=== PATIENT | male | born 1945 | race Caucasian/White ===

== ENCOUNTER 2018-08-24 12:26 | Observation (INO) | payer BC, MEDICARE ==
[2018-08-24] MEDS ORDERED: NACL 0.9% 3 ML SYG IV (14:00)
[2018-08-24] MEDS ORDERED: traMADol 50 MG TAB GTB (14:00)
[2018-08-24] MEDS ORDERED: ONDANSETRON 4 MG INJ IV (14:00)
[2018-08-24] MEDS: SOD CHLORIDE 0.9% 1,000 ML IV ×2 (14:18→23:01)
[2018-08-24] MEDS: LORATADINE 10 MG TAB PO (14:24)
[2018-08-24] MEDS: PANTOPRAZOLE 40 MG INJ IV (14:24)
[2018-08-24 15:36] LABS: TROPONIN-I < 0.012 ng/ml (0.000-0.120)
[2018-08-24 20:10] LABS: TROPONIN-I < 0.012 ng/ml (0.000-0.120)
[2018-08-24] MEDS: ACETAMINOPHEN 325 MG TAB PO (23:01)
[2018-08-25] MEDS: PANTOPRAZOLE 40 MG INJ IV (05:33)
[2018-08-25 06:06] LABS: ADD MAN DIFF? NO
[2018-08-25 06:11] LABS: WHITE BLOOD COUNT 3.4 10^3/ul (4.8-10.8)
[2018-08-25 06:11] LABS: ABNORMAL IP MESSAGE 1; BASOPHILS % 0.3 % (0.0-2.0); EOSINOPHILS % 0.3 % (0.0-7.0); HEMATOCRIT 35.3 % (42.0-52.0); HEMOGLOBIN 11.6 g/dl (14.0-18.0); LYMPHOCYTES # 0.5 10^3/ul (0.8-2.9); LYMPHOCYTES % 13.7 % (15.0-51.0); MEAN CORPUSCULAR HEMOGLOBIN 30.4 pg (29.0-33.0); MEAN CORPUSCULAR HGB CONC 32.9 g/dl (32.0-37.0); MEAN CORPUSCULAR VOLUME 92.4 fl (82.0-101.0); MEAN PLATELET VOLUME 9.9 fl (7.4-10.4); MONOCYTE # 0.4 10^3/ul (0.3-0.9); MONOCYTES % 12.2 % (0.0-11.0); NEUTROPHIL # 2.5 10^3/ul (1.6-7.5); NEUTROPHILS % 72.9 % (39.0-77.0); PLATELET COUNT 146 10^3/UL (140-415); POSITIVE DIFF @See below; RED BLOOD COUNT 3.82 10^6/ul (4.70-6.10); RED CELL DISTRIBUTION WIDTH 13.4 % (11.5-14.5)
[2018-08-25 07:27] LABS: ANION GAP 8 (5-13); BLOOD UREA NITROGEN 15 mg/dl (7-20); CALCIUM 8.3 mg/dl (8.4-10.2); CARBON DIOXIDE 28 mmol/L (21-31); CHLORIDE 100 mmol/L (97-110); CREATININE 0.94 mg/dl (0.61-1.24); GLUCOSE 88 mg/dl (70-220); POTASSIUM 3.3 mmol/L (3.5-5.1); SODIUM 136 mmol/L (135-144)
[2018-08-25] MEDS: ASPIRIN 81 MG TAB PO (08:27)
[2018-08-25] MEDS: SOD CHLORIDE 0.9% 1,000 ML IV (08:27)
[2018-08-25] MEDS: DOCUSATE SODIUM 100 MG CAP PO (08:35)
[2018-08-25] MEDS: POTASSIUM CHLORIDE (SR) 20 MEQ TAB PO (10:09)
[2018-08-25] MEDS: INFLUENZA VIRUS VACCINE 0.5 ML (DISPENSING) IM* (11:54)
== END 2018-08-25 16:21 | disposition home or self-care (01) ==
LOC: 6WM 12:26
PROVIDERS: Hospitalist
DX: R55 Syncope and collapse (principal); I10 Essential (primary) hypertension; K52.9 Noninfective gastroenteritis and colitis, unspecified; Z23 Encounter for immunization
CPT/HCPCS: 70450; 80048; 84484; 85025; 87400; 90686; G0378